=== PATIENT | female | born 1970 | race Caucasian/White ===

== ENCOUNTER 2016-04-12 14:13 | Emergency (ER) | payer OTHER, SELFPAY ==
[2016-04-12] MEDS ORDERED: Ondansetron ODT 4 MG TAB ONE (14:31)
[2016-04-12] MEDS ORDERED: Lidocaine 1% 20 ML MDV ONE (14:33)
[2016-04-12] MEDS ORDERED: cefTRIAXone\\ROCEPHIN 1 GM VIAL ONE (14:33)
--- NOTE | 2016-04-12 14:46 | PICIS ---
[facility] EMERGENCY RECORD TRIAGE (FriApr 12, 2016 14:19 BDON) TRIAGE NOTES: Right bottom toothache and swelling, has appointment at [facility] next week. (FriApr 12, 2016 14:19 BDON) PATIENT: NAME: Madelaine Larsen, AGE: 46, GENDER: female, : Fri1970, TIME OF GREET: FriApr 12, 2016 14:13, PREFERRED LANGUAGE: Tajik, ETHNICITY: Not or , ECODE BILLING MAP: [facility], SSN: [id number], Zip Code: [address], KG WEIGHT: [phone], PHONE: , , , PERSON ID: [id number], PCP: [facility] Yu, /Yanick. (FriApr 12, 2016 14:19 BDON) COMPLAINT: DENTAL PAIN. (FriApr 12, 2016 14:19 BDON) ADMISSION: URGENCY: 5 Fast Track, ADMISSION SOURCE: Home, TRANSPORT: Walk-in, BED: TRIAGE. (FriApr 12, 2016 14:19 BDON) ASSESSMENT: Assessment: Right bottom toothache and swelling, has appointment at [facility] Next week, Symptoms began 3 days ago. (14:21 BDON) TREATMENTS IN PROGRESS: Treatments given Prehospital: none. (14:21 BDON) PROVIDERS: TRIAGE NURSE: Nancy Magana RN. (FriApr 12, 2016 14:19 BDON) VITAL SIGNS: BP 142/68, Pulse 98, Resp 18, Temp 98.0, (Oral), Pain 5, O2 Sat 97, Time 04/12/2016 14:17. (14:17 BDON) PREVIOUS VISIT ALLERGIES: codeine sulfate. (FriApr 12, 2016 14:19 BDON) codeine sulfate. (14:21 BDON) KNOWN ALLERGIES codeine (Unconfirmed) codeine sulfate: Reaction: Nausea CURRENT MEDICATIONS (14:19 BDON) None VITAL SIGNS VITAL SIGNS: BP: 142/68, Pulse: 98, Resp: 18, Temp: 98.0 (Oral), Pain: 5, O2 sat: 97, Time: 04/12/2016 14:17. (14:17 BDON) Resp: 17, Pain: 2, Time: 04/12/2016 15:02. (15:02 BDON) NURSING ASSESSMENT: DENTAL (14:24 BDON) CONSTITUTIONAL: Patient arrives ambulatory, Gait steady, History obtained from patient, Patient appears, in distress due to pain, Patient cooperative, Patient alert, Oriented to person, place and time, Skin warm, Skin dry, Skin normal in color. PAIN: right lower tooth. DENTAL: Associated with, swelling to the right side of face. NURSING PROCEDURE: DISCHARGE NOTE (15:02 BDON) DISCHARGE: Patient discharged to home, ambulating without &a-1R&a+25V*p+0X*r3346N*c202B*c15G*c2P*p-0X&a-25V&a+1R Name: Madelaine Larsen : 1970 F46 MedRec: [id number] AcctNum: [id number] Prepared: FriApr 12, 2016 15:27 by Interface Page 1 of 6 pMD [facility] EMERGENCY RECORD assistance, friend driving, Summary of Care printed/ provided, Patient requested and was provided an electronic copy of Discharge Instructions, Transition record given to patient, Discharge instructions given to patient, Simple or moderate discharge teaching performed, Prescriptions given and instructions on side effects given, Medication reconciliation form given, Above person(s) verbalized understanding of discharge instructions and follow-up care, Patient instructed not to drive home, Patient treated and evaluated by physician. VITAL SIGNS: Resp: 17, Pain: 2. MEDICATION ADMINISTRATION SUMMARY Drug Name: Rocephin IM Convenience, Dose Ordered: 1 g, Route: Intramuscular, Status: Given, Time: 14:44 04/12/2016, Drug Name: morphine (PF) injection, Dose Ordered: 5 mg, Route: Intramuscular, Status: Given, Time: 14:43 04/12/2016, Drug Name: Zofran oral, Dose Ordered: 4 mg, Route: Oral, Status: Given, Time: 14:32 04/12/2016, Detailed record available in Medication Service section. MEDICATION SERVICE morphine (PF) injection: Order: morphine (PF) injection (morphine sulfate/preservative free) - Dose: 5 mg : Intramuscular POTENTIAL ALLERGY REACTION: 'codeine sulfate [codeine/codeine sulfate]' - Not a true drug allergy, Reviewed with patient Ordered by: Per Martinez MD Entered by: Per Martinez MD FriApr 12, 2016 14:27 Documented as given by: Nancy Magana RN FriApr 12, 2016 14:43 Patient, Medication, Dose, Route and Time verified prior to administration. IM medication, Amount given: 4 mg, Medication administered to left deltoid, Correct patient, time, route, dose and medication confirmed prior to administration, Patient advised of actions and side-effects prior to administration, Allergies confirmed and medications reviewed prior to administration. Rocephin IM Convenience: Order: Rocephin IM Convenience (ceftriaxone sodium/lidocaine HCl) - Dose: 1 g : Intramuscular Ordered by: Per Martinez MD Entered by: Per Martinez MD FriApr 12, 2016 14:27 Documented as given by: Nancy Magana RN FriApr 12, 2016 14:44 Patient, Medication, Dose, Route and Time verified prior to administration. IM antibiotic, Medication administered to right deltoid, Correct patient, time, route, dose and medication confirmed prior to administration, Patient advised of actions and side-effects prior to administration, Allergies confirmed and medications reviewed prior to administration, Patient in position of comfort, Cart in lowest &a-1R&a+25V*p+0X*n1831Q*c202B*c15G*c2P*p-0X&a-25V&a+1R Name: Madelaine Larsen : 1970 F46 MedRec: [id number] AcctNum: [id number] Prepared: FriApr 12, 2016 15:27 by Interface Page 2 of 6 pMD [facility] EM[facility] RECORD position. Zofran oral: Order: Zofran oral (ondansetron HCl) - Dose: 4 mg : Oral Ordered by: Per Martinez MD Entered by: Per Martinez MD FriApr 12, 2016 14:28 , Acknowledged by: Nadeen Arcos RN FriApr 12, 2016 14:31 Documented as given by: Nadeen Arcos RN FriApr 12, 2016 14:32 Patient, Medication, Dose, Route and Time verified prior to administration. Amount given: 4mg, Site: Medication administered S.L., Patient appears Awake and alert- acceptable, Correct patient, time, route, dose and medication confirmed prior to administration, Patient advised of actions and side-effects prior to administration, Allergies confirmed and medications reviewed prior to administration, Patient in position of comfort, Side rails up, Cart in lowest position, Family at bedside. HPI TOOTHACHE (14:31 AGRE) CHIEF COMPLAINT: Patient presents for evaluation of toothache, Patient presents for evaluation of jaw swelling. HISTORIAN: History provided by patient, SWELLING AND PAIN IN THE [facility] [place] SINCE YESTERDAY, WORST TODAY. NO FEVER OR CHILLS. NO OTHER SYMPTOMS. LOCATION: Symptoms are localized, most severe to RIGHT LOWER JAW. TEETH: lower right 2nd molar (#31),. QUALITY: Pain is dull in nature, described as aching, described as a sensation of fullness, described as pressure-like, described as throbbing. SEVERITY: Maximum severity of symptoms moderate, Currently symptoms are moderate. TIME COURSE: Gradual onset of symptoms, Symptoms are worsening. ASSOCIATED WITH: Associated with facial pain, Associated with facial swelling. EXACERBATED BY: Patient's condition exacerbated by nothing. RELIEVED BY: Patient's condition relieved by nothing. ROS (14:34 AGRE) CONSTITUTIONAL: Historian denies chills, denies fever, denies lethargy, denies malaise. EYES: Historian denies eye pain, denies eye redness. ENT: Historian denies rhinorrhea, denies sinus pain, denies sore throat. CARDIOVASCULAR: Historian denies chest pain, denies dyspnea on exertion. RESPIRATORY: Historian denies cough, denies shortness of breath. GI: Historian denies abdominal pain, denies nausea, denies vomiting. MUSCULOSKELETAL: Historian denies back pain, denies neck pain. SKIN: Negative skin review of systems, Historian denies skin &a-1R&a+25V*p+0X*m9424O*c202B*c15G*c2P*p-0X&a-25V&a+1R Name: Madelaine Larsen : 1970 F46 MedRec: [id number] AcctNum: [id number] Prepared: FriApr 12, 2016 15:27 by Interface Page 3 of 6 pMD [facility] EM[facility] RECORD changes, denies skin lesions. NEUROLOGIC: Historian denies headache, denies mental status changes. PSYCHIATRIC: Negative psychiatric review of systems, Historian denies anxiety. PAST MEDICAL HISTORY (14:21 BDON) MEDICAL HISTORY: Flu vaccine not up to date, Tetanus immunization up to date, Pneumococcal vaccine up to date, Past medical history includes cardiac history, myocardial infarction, arrhythmia, atrial fibrillation, Past medical history includes history of hypertension. FEMALE SURGICAL HISTORY: Surgical history of section x3. PSYCHIATRIC HISTORY: No previous psychiatric history. SOCIAL HISTORY: Patient drinks socially, twice a month, Patient denies drug use, Patient currently uses tobacco, smokes cigarettes, daily, Patient smokes 1 pack per day. FAMILY HISTORY: Family history includes coronary artery disease, father, AT 60 Y/O OR SO, Family history includes early coronary artery disease, sibling, IN 40S OF PRESUMED [place]. PHYSICAL EXAM (14:34 AGRE) CONSTITUTIONAL: Vital signs reviewed, Patient afebrile, Patient appears non toxic, Patient appears pain free, Patient alert and oriented to person, place and time, NURSES NOTES REVIEWED. HEAD: Head exam included findings of head atraumatic, normocephalic. EYES: Eye exam included findings of eyelids normal to inspection, Extraocular muscles intact, Conjunctiva normal, Sclera normal. ENT: Ear exam normal, Nose exam normal, Pharynx exam normal, Uvula exam normal, Tonsil exam normal, Mouth exam normal, Teeth with, poor dentition, dental caries, abscess, TENDER, SWELLING OVER THE RIGHT LOWER JAW WITHOUT ERYTHEMA OR POINTING ABSCESS. NECK: Neck exam included findings of normal range of motion, no meningeal signs. RESPIRATORY CHEST: Respiratory exam included findings of no respiratory distress, Chest exam included findings of chest movement symmetrical. BACK: Back exam included findings of normal inspection, range of motion normal. UPPER EXTREMITY: Upper extremity exam included findings of inspection normal, Range of motion normal. LOWER EXTREMITY: Lower extremity exam included findings of inspection normal, Range of motion normal. NEURO: Neuro exam findings include patient oriented to person, place and time, Speech normal, Gait normal, Memory normal, Cranial nerves intact, no focal motor deficits. SKIN: Skin exam included findings of skin warm, dry, and normal &a-1R&a+25V*p+0X*b8662P*c202B*c15G*c2P*p-0X&a-25V&a+1R Name: Chelsea Larsenyusuf Reyes : 1970 F46 MedRec: [id number] AcctNum: [id number] Prepared: FriApr 12, 2016 15:27 by Interface Page 4 of 6 pMD [facility] EMERGENCY RECORD in color. PSYCHIATRIC: Psychiatric exam normal, Normal affect. EVENTS TRANSFER: Triage to Emergency Triage. (14:19 BDON) Emergency Triage to Emergency Room -04. (14:19 BDON) Removed from Emergency Emergency Room -04. (15:13 BDON) DOCTOR NOTES (14:36 AGRE) TEXT: DISCUSSED WITH PATIENT FINDINGS ON EXAM, MANAGEMENT OF THE ABSCESS/INFECTION AND PAIN, NEED FOR FOLLOW UP. SHE EXPRESSED UNDERSTANDING AND AGREEMENT. PATIENT STATUS: Patient has improved since arrival to emergency department. PATIENT PLAN: The patient will be discharged. PROBLEM LIST No recorded problems DIAGNOSIS (14:29 AGRE) FINAL: PRIMARY: DENTAL ABSCESS. DISPOSITION PATIENT: Disposition Type: Discharge, Disposition: *Discharge Home, Condition: Improved. (14:29 AGRE) Patient left the department. (15:13 BDON) INSTRUCTION (14:30 AGRE) DISCHARGE: DENTAL ABSCESS. FOLLOWUP: [facility], [facility], [address] [place] [id number], . SPECIAL: FOLLOW UP WITH A DENTIST IN 5 - 7 DAYS. SEE A PHYSICIAN SOONER IF WORSENING OR IF NEW SYMPTOMS DEVELOP. IN ADDITION TO THE ULTRAM TAKE MOTRIN 600 MG EVERY 6 HOURS FOR INFLAMMATION AND PAIN. PRESCRIPTION (14:29 AGRE) Augmentin: TABLET : 875 mg-125 mg : ORAL : Quantity: 1 Unit: tab(s) Route: ORAL Schedule: every 12 hours Dispense: 20 Unit: tab(s) May substitute. Refills: No Refills . NOTES: No Refills. Ultram: TABLET : 50 mg : ORAL : Quantity: 1-2 Unit: tab(s) Route: ORAL Schedule: every 6 hours PRN Dispense: 20 May substitute. Refills: No Refills POTENTIAL ALLERGY REACTION: 'codeine sulfate [codeine/codeine sulfate]' Override Rationale: Not a true drug allergy, Reviewed with patient. NOTES: ^s=No Refills No Refills. &a-1R&a+25V*p+0X*b5201I*c202B*c15G*c2P*p-0X&a-25V&a+1R Name: Madelaine Larsen : 1970 6 MedRec: [id number] AcctNum: [id number] Prepared: FriApr 12, 2016 15:27 by Interface Page 5 of 6 pMD [facility] EMERGENCY RECORD IMAGING (15:12 BDON) *DISCHARGE INSTRUCTIONS RECEIPT: Image captured from scanner. *SUPPLY CHARGE SHEET: Image captured from scanner. ADMIN DIGITAL SIGNATURE: MD Martinez Andrea. (14:37 AGRE) YONATHAN Magana, Nancy. (15:13 BDON) Carbajal: AGRE=MD Martinez Andrea BDON=YONATHAN Magana Bettye &a-1R&a+25V*p+0X*l5742A*c202B*c15G*c2P*p-0X&a-25V&a+1R Name: Madelaine Larsen : 1970 F46 MedRec: [id number] AcctNum: [id number] Prepared: FriApr 12, 2016 15:27 by Interface Page 6 of 6 pMD MTDD
--- NOTE | 2016-04-12 14:49 | ERRECORD ---
[facility] EMERGENCY RECORD HPI TOOTHACHE (14:31 AGRE) CHIEF COMPLAINT: Patient presents for evaluation of toothache, Patient presents for evaluation of jaw swelling. HISTORIAN: History provided by patient, SWELLING AND PAIN IN THE [facility] [place] SINCE YESTERDAY, WORST TODAY. NO FEVER OR CHILLS. NO OTHER SYMPTOMS. LOCATION: Symptoms are localized, most severe to RIGHT LOWER JAW. TEETH: lower right 2nd molar (#31),. QUALITY: Pain is dull in nature, described as aching, described as a sensation of fullness, described as pressure-like, described as throbbing. SEVERITY: Maximum severity of symptoms moderate, Currently symptoms are moderate. TIME COURSE: Gradual onset of symptoms, Symptoms are worsening. ASSOCIATED WITH: Associated with facial pain, Associated with facial swelling. EXACERBATED BY: Patient's condition exacerbated by nothing. RELIEVED BY: Patient's condition relieved by nothing. ROS (14:34 AGRE) CONSTITUTIONAL: Historian denies chills, denies fever, denies lethargy, denies malaise. EYES: Historian denies eye pain, denies eye redness. ENT: Historian denies rhinorrhea, denies sinus pain, denies sore throat. CARDIOVASCULAR: Historian denies chest pain, denies dyspnea on exertion. RESPIRATORY: Historian denies cough, denies shortness of breath. GI: Historian denies abdominal pain, denies nausea, denies vomiting. MUSCULOSKELETAL: Historian denies back pain, denies neck pain. SKIN: Negative skin review of systems, Historian denies skin changes, denies skin lesions. NEUROLOGIC: Historian denies headache, denies mental status changes. PSYCHIATRIC: Negative psychiatric review of systems, Historian denies anxiety. PAST MEDICAL HISTORY (14:21 BDON) MEDICAL HISTORY: Flu vaccine not up to date, Tetanus immunization up to date, Pneumococcal vaccine up to date, Past medical history includes cardiac history, myocardial infarction, arrhythmia, atrial fibrillation, Past medical history includes history of hypertension. FEMALE SURGICAL HISTORY: Surgical history of section x3. PSYCHIATRIC HISTORY: No previous psychiatric history. SOCIAL HISTORY: Patient drinks socially, twice a month, Patient denies drug use, Patient currently uses tobacco, smokes &a-1R&a+25V*p+0X*v2842W*c202B*c15G*c2P*p-0X&a-25V&a+1R Name: Madelaine Larsen : 1970 F46 MedRec: [id number] AcctNum: [id number] Prepared: FriApr 12, 2016 15:21 by Interface Page 1 of 3 pMD [facility] EMERGENCY RECORD cigarettes, daily, Patient smokes 1 pack per day. FAMILY HISTORY: Family history includes coronary artery disease, father, AT 60 Y/O OR SO, Family history includes early coronary artery disease, sibling, IN 40S OF PRESUMED [place]. KNOWN ALLERGIES codeine (Unconfirmed) codeine sulfate: Reaction: Nausea CURRENT MEDICATIONS (14:19 BDON) None VITAL SIGNS VITAL SIGNS: BP: 142/68, Pulse: 98, Resp: 18, Temp: 98.0 (Oral), Pain: 5, O2 sat: 97, Time: 04/12/2016 14:17. (14:17 BDON) Resp: 17, Pain: 2, Time: 04/12/2016 15:02. (15:02 BDON) PHYSICAL EXAM (14:34 AGRE) CONSTITUTIONAL: Vital signs reviewed, Patient afebrile, Patient appears non toxic, Patient appears pain free, Patient alert and oriented to person, place and time, NURSES NOTES REVIEWED. HEAD: Head exam included findings of head atraumatic, normocephalic. EYES: Eye exam included findings of eyelids normal to inspection, Extraocular muscles intact, Conjunctiva normal, Sclera normal. ENT: Ear exam normal, Nose exam normal, Pharynx exam normal, Uvula exam normal, Tonsil exam normal, Mouth exam normal, Teeth with, poor dentition, dental caries, abscess, TENDER, SWELLING OVER THE RIGHT LOWER JAW WITHOUT ERYTHEMA OR POINTING ABSCESS. NECK: Neck exam included findings of normal range of motion, no meningeal signs. RESPIRATORY CHEST: Respiratory exam included findings of no respiratory distress, Chest exam included findings of chest movement symmetrical. BACK: Back exam included findings of normal inspection, range of motion normal. UPPER EXTREMITY: Upper extremity exam included findings of inspection normal, Range of motion normal. LOWER EXTREMITY: Lower extremity exam included findings of inspection normal, Range of motion normal. NEURO: Neuro exam findings include patient oriented to person, place and time, Speech normal, Gait normal, Memory normal, Cranial nerves intact, no focal motor deficits. SKIN: Skin exam included findings of skin warm, dry, and normal in color. PSYCHIATRIC: Psychiatric exam normal, Normal affect. MEDICATION ADMINISTRATION SUMMARY &a-1R&a+25V*p+0X*b3229R*c202B*c15G*c2P*p-0X&a-25V&a+1R Name: Madelaine Larsen : 1970 F46 MedRec: [id number] AcctNum: [id number] Prepared: FriApr 12, 2016 15:21 by Interface Page 2 of 3 pMD [facility] EMERGENCY RECORD Drug Name: Rocephin IM Convenience, Dose Ordered: 1 g, Route: Intramuscular, Status: Given, Time: 14:44 04/12/2016, Drug Name: morphine (PF) injection, Dose Ordered: 5 mg, Route: Intramuscular, Status: Given, Time: 14:43 04/12/2016, Drug Name: Zofran oral, Dose Ordered: 4 mg, Route: Oral, Status: Given, Time: 14:32 04/12/2016, Detailed record available in Medication Service section. DOCTOR NOTES (14:36 AGRE) TEXT: DISCUSSED WITH PATIENT FINDINGS ON EXAM, MANAGEMENT OF THE ABSCESS/INFECTION AND PAIN, NEED FOR FOLLOW UP. SHE EXPRESSED UNDERSTANDING AND AGREEMENT. PATIENT STATUS: Patient has improved since arrival to emergency department. PATIENT PLAN: The patient will be discharged. PROBLEM LIST No recorded problems DIAGNOSIS (14:29 AGRE) FINAL: PRIMARY: DENTAL ABSCESS. PRESCRIPTION (14:29 AGRE) Augmentin: TABLET : 875 mg-125 mg : ORAL : Quantity: 1 Unit: tab(s) Route: ORAL Schedule: every 12 hours Dispense: 20 Unit: tab(s) May substitute. Refills: No Refills . NOTES: No Refills. Ultram: TABLET : 50 mg : ORAL : Quantity: 1-2 Unit: tab(s) Route: ORAL Schedule: every 6 hours PRN Dispense: 20 May substitute. Refills: No Refills POTENTIAL ALLERGY REACTION: 'codeine sulfate [codeine/codeine sulfate]' Override Rationale: Not a true drug allergy, Reviewed with patient. NOTES: ^s=No Refills No Refills. DISPOSITION PATIENT: Disposition Type: Discharge, Disposition: *Discharge Home, Condition: Improved. (14:29 TREVER) Patient left the department. (15:13 RAMU) Carbajal: TREVER=MD Jaun, Per BDON=YONATHAN Magana, [facility] &a-1R&a+25V*p+0X*g9880Z*c202B*c15G*c2P*p-0X&a-25V&a+1R Name: Madelaine Larsen : 1970 F46 MedRec: [id number] AcctNum: [id number] Prepared: FriApr 12, 2016 15:21 by Interface Page 3 of 3 pMD MTDD
== END 2016-04-12 15:02 | disposition home or self-care (01) ==
LOC: NAV ERS 14:13
DX: K04.7 Periapical abscess without sinus (principal); I25.2 Old myocardial infarction; I48.91 Unspecified atrial fibrillation; I10 Essential (primary) hypertension; F17.210 Nicotine dependence, cigarettes, uncomplicated
CPT/HCPCS: 96372; J0696; J2001; J2270; Q0162

== ENCOUNTER 2016-04-13 16:21 | Emergency (ER) | payer SELFPAY ==
[2016-04-13] MEDS ORDERED: Benzocaine 20% Spray 60 ML CAN ONE (16:55)
[2016-04-13] MEDS ORDERED: Ondansetron ODT 4 MG TAB ONE (16:58)
--- NOTE | 2016-04-13 17:57 | ERRECORD ---
[facility] EMERGENCY RECORD HPI TOOTHACHE (16:53 SROB) CHIEF COMPLAINT: Patient presents for evaluation of toothache, Patient presents for evaluation of jaw swelling. HISTORIAN: History provided by patient, This patient was seen yesterday with tooth abscess, placed on Augmentin and ultram but noted increased swelling and "pus pocket" on gum today. LOCATION: Symptoms are localized, most severe to right lower gum near 2nd molar. QUALITY: Pain is dull in nature, described as throbbing. SEVERITY: Maximum severity of symptoms moderate, Currently symptoms are moderate. TIME COURSE: Gradual onset of symptoms, 3. ASSOCIATED WITH: Associated with facial pain, for 2 days, Associated with facial swelling, for 2 days. EXACERBATED BY: Patient's condition exacerbated by chewing. RELIEVED BY: Patient's condition relieved by nothing. ROS (16:55 SROB) CONSTITUTIONAL: Historian denies chills, denies fever. ENT: Complains of right lower mouth and jaw pain and swelling, Historian denies epistaxis, Historian denies otalgia, Historian denies rhinorrhea, Historian denies sore throat. CARDIOVASCULAR: Historian denies chest pain. RESPIRATORY: Historian denies cough, denies shortness of breath. GI: Historian denies nausea, denies vomiting. MUSCULOSKELETAL: Historian denies neck pain. SKIN: Historian denies rash. NEUROLOGIC: Historian denies headache. PAST MEDICAL HISTORY (16:38 EPIE) MEDICAL HISTORY: Flu vaccine not up to date, Tetanus immunization up to date, Pneumococcal vaccine up to date, Past medical history includes cardiac history, myocardial infarction, arrhythmia, atrial fibrillation, Past medical history includes history of hypertension. FEMALE SURGICAL HISTORY: Surgical history of section x3. PSYCHIATRIC HISTORY: No previous psychiatric history. SOCIAL HISTORY: Patient drinks socially, twice a month, Patient denies drug use, Patient currently uses tobacco, smokes cigarettes, daily, Patient smokes 1 pack per day. FAMILY HISTORY: Family history includes coronary artery disease, father, AT 60 Y/O OR SO, Family history includes early coronary artery disease, sibling, IN 40S OF PRESUMED [place]. KNOWN ALLERGIES codeine sulfate: Reaction: Nausea &a-1R&a+25V*p+0X*[id number]*c202B*c15G*c2P*p-0X&a-25V&a+1R Name: Madelaine Larsen : 1970 F46 MedRec: [id number] AcctNum: [id number] Prepared: Sat Apr 13, 2016 17:48 by Interface Page 1 of 3 pMD [facility] EMERGENCY RECORD CURRENT MEDICATIONS (16:37 EPIE) Augmentin: TABLET : Strength - 875 mg-125 mg : ORAL Patient Dose: 1 tab(s) Oral every 12 hours. Ultram: TABLET : Strength - 50 mg : ORAL Patient Dose: 1-2 tab(s) Oral every 6 hours PRN. VITAL SIGNS VITAL SIGNS: BP: 137/68, Pulse: 86, Resp: 20 (Non-Labored), Temp: 98.4 (Oral), Pain: 6, O2 sat: 100 on Room Air, Time: 04/13/2016 16:34. (16:34 EPIE) BP: 132/72, Pulse: 80, Resp: 18, Temp: 98.0 (Oral), Pain: 4, O2 sat: 99 on Room Air, Time: 04/13/2016 17:40. (17:40 EPIE) PHYSICAL EXAM (16:56 SROB) CONSTITUTIONAL: Vital signs reviewed, Patient alert and oriented to person, place and time. HEAD: Head exam included findings of head atraumatic, normocephalic. EYES: Pupils equally round and reactive to light, Extraocular muscles intact, Conjunctiva normal. ENT: Ear exam normal, external ear normal, no drainage, no bleeding, Nose exam normal, no bleeding from nares, Pharynx exam normal, Uvula exam normal, Tonsil exam normal, Mouth exam included findings of, There is swelling at thegum of thelower right jaw at the level of the 2nd molar, which is decayed and missing 50% of tooth. There is a pointing area of pus at the gum level. NECK: Neck exam included findings of normal range of motion, Trachea midline, no jugular venous distention. RESPIRATORY CHEST: Respiratory exam included findings of no respiratory distress, Breath sounds clear, No wheezing, No rales, No rhonchi. CARDIOVASCULAR: Cardiovascular exam included findings of heart rate regular rate and rhythm, Heart sounds normal, normal S1, normal S2, no murmurs. SKIN: Skin exam included findings of skin warm, dry. MEDICATION ADMINISTRATION SUMMARY Drug Name: *Hurricaine, Dose Ordered: 3 spray(s), Route: Topical, Status: Given, Time: 17:02 04/13/2016, *Additional information available in notes, Detailed record available in Medication Service section. PROBLEM LIST No recorded problems DIAGNOSIS (17:32 SROB) FINAL: PRIMARY: PERIAPICAL ABSCESS WITHOUT SINUS. &a-1R&a+25V*p+0X*b5539H*c202B*c15G*c2P*p-0X&a-25V&a+1R Name: Madelaine Larsen : 1970 6 MedRec: [id number] AcctNum: [id number] Prepared: Sat Apr 13, 2016 17:48 by Interface Page 2 of 3 pMD [facility] EMERGENCY RECORD PRESCRIPTION (17:33 SROB) [place]: TABLET : 5 mg-325 mg : ORAL : Quantity: 1-2 Unit: tab(s) Route: ORAL Schedule: every 6 hours PRN Dispense: 20 Unit: tab(s) May substitute. Refills: No Refills POTENTIAL ALLERGY REACTION: 'codeine sulfate [codeine/codeine sulfate]'. NOTES: No Refills. Zofran ODT: TABLET,DISINTEGRATING : 4 mg : ORAL : Quantity: 1 Unit: tab(s) Route: ORAL Schedule: every 8 hours PRN Dispense: 20 Unit: tab(s) May substitute. Refills: No Refills . NOTES: prn nausea No Refills. DISPOSITION PATIENT: Disposition Type: Discharge, Disposition: *Discharge Home, Disposition Transport: Ambulatory, Condition: Good. (17:32 SROB) Patient left the department. (17:43 EPIE) Carbajal: EPIE=YONATHAN Le, Vilma SROB=MD Yovany, [facility] &a-1R&a+25V*p+0X*[id number]*c202B*c15G*c2P*p-0X&a-25V&a+1R Name: Madelaine Larsen : 1970 F46 MedRec: [id number] AcctNum: [id number] Prepared: Sat Apr 13, 2016 17:48 by Interface Page 3 of 3 pMD MTDD
--- NOTE | 2016-04-13 18:08 | PICIS ---
[facility] EMERGENCY RECORD TRIAGE (16:37 EPIE) TRIAGE NOTES: Pt states that she has a dental abscess. Pt was seen here yesterday and got a prescription and pain medication. (16:37 EPIE) PATIENT: NAME: Madelaine Larsen, AGE: 46, GENDER: female, : Fri1970, TIME OF GREET: Sat Apr 13, 2016 16:22, PREFERRED LANGUAGE: [place], ETHNICITY: Not or , ECODE BILLING MAP: [facility], SSN: [id number], Zip Code: [address], KG WEIGHT: [phone], PHONE: , , , PERSON ID: [id number], PCP: Adriana Nicholas /Yanick. (16:37 EPIE) COMPLAINT: DENTAL PAIN. (16:37 EPIE) ADMISSION: URGENCY: 4 Non Urgent, ADMISSION SOURCE: Home, TRANSPORT: CAR, BED: TRIAGE. (16:37 EPIE) TRIAGE SCREENING: Patient denies suicidal ideation, Patient denies presence of domestic violence. (16:38 EPIE) TREATMENTS IN PROGRESS: Treatments given Prehospital: augmentin earlier. (16:38 EPIE) PROVIDERS: TRIAGE NURSE: Vilma Le RN. (16:37 EPIE) VITAL SIGNS: BP 137/68, Pulse 86, Resp 20, (Non-Labored), Temp 98.4, (Oral), Pain 6, O2 Sat 100, on Room Air, Time 04/13/2016 16:34. (16:34 EPIE) PREVIOUS VISIT ALLERGIES: codeine sulfate. (16:37 EPIE) codeine sulfate. (16:38 EPIE) KNOWN ALLERGIES codeine sulfate: Reaction: Nausea CURRENT MEDICATIONS (16:37 EPIE) Augmentin: TABLET : Strength - 875 mg-125 mg : ORAL Patient Dose: 1 tab(s) Oral every 12 hours. Ultram: TABLET : Strength - 50 mg : ORAL Patient Dose: 1-2 tab(s) Oral every 6 hours PRN. VITAL SIGNS VITAL SIGNS: BP: 137/68, Pulse: 86, Resp: 20 (Non-Labored), Temp: 98.4 (Oral), Pain: 6, O2 sat: 100 on Room Air, Time: 04/13/2016 16:34. (16:34 EPIE) BP: 132/72, Pulse: 80, Resp: 18, Temp: 98.0 (Oral), Pain: 4, O2 sat: 99 on Room Air, Time: 04/13/2016 17:40. (17:40 EPIE) NURSING ASSESSMENT: DENTAL (17:03 EPIE) CONSTITUTIONAL: Patient arrives ambulatory, Gait steady, History obtained from patient, Patient appears comfortable, Patient cooperative, Patient alert, Oriented to person, place and time, Skin warm, Skin dry, Skin normal in color, Mucous membranes pink, Mucous membranes moist, Patient is well-groomed. PAIN: shooting pain, right ear, Onset of pain &a-1R&a+25V*p+0X*c6746Z*c202B*c15G*c2P*p-0X&a-25V&a+1R Name: Madelaine Larsen : 1970 F46 MedRec: [id number] AcctNum: [id number] Prepared: Sat Apr 13, 2016 17:55 by Interface Page 1 of 5 pMD [facility] EMERGENCY RECORD 04/12/2016, on a scale 0-10 patient rates pain as 6. DENTAL: Dental assessment findings include mouth normal, Teeth abnormal:, broken secondary tooth (teeth), gums swollen, gums tender, abscess to right cheek pocket. NURSING PROCEDURE: DISCHARGE NOTE (17:41 EPIE) DISCHARGE: Patient discharged to home, ambulating without assistance, family driving, accompanied by //partner, Summary of Care printed/ provided, Discharge instructions given to patient, Simple or moderate discharge teaching performed, Prescriptions given and instructions on side effects given, Name of prescription(s) given: NORCO, ZOFRAN. BELONGINGS: Belongings and valuables with patient upon arrival to the Emergency Department include:, Belongings and valuables with patient at time of discharge include:, Belongings remain with patient, Valuables remain with patient. NURSING PROCEDURE: NURSE NOTES (17:32 EPIE) NURSES NOTES: Notes: ERMD performed I&D in right cheek pocket. States small amount of blood came out. No purulent drainage. Pt tolerated well. ORDER DETAILS Order Name: Miscellaneous Nurse Order(s), Status: Done, Time: 17:04 04/13/2016, User: EPIE, - Ordered for: MD Yovany, Zafar, - Entered by: MD Yovany, Zafar - Sat Apr 13, 2016 16:53, - Quantity: 1. MEDICATION ADMINISTRATION SUMMARY Drug Name: *Hurricaine, Dose Ordered: 3 spray(s), Route: Topical, Status: Given, Time: 17:02 04/13/2016, *Additional information available in notes, Detailed record available in Medication Service section. MEDICATION SERVICE (17:02 SROB) Hurricaine: Order: Hurricaine (benzocaine) - Dose: 3 spray(s) : Topical Schedule: Now Notes: spray on 2 by 2 and hold it on the area. Ordered by: Zafar Pedroza MD Entered by: Zafar Pedroza MD Sat Apr 13, 2016 16:52 , Acknowledged by: Vilma Le RN Sat Apr 13, 2016 16:54 Documented as given by: Vilma Le RN Sat Apr 13, 2016 17:02 Patient, Medication, Dose, Route and Time verified prior to administration. &a-1R&a+25V*p+0X*h8764Q*c202B*c15G*c2P*p-0X&a-25V&a+1R Name: Madelaine Larsen : 1970 F46 MedRec: [id number] AcctNum: [id number] Prepared: Sat Apr 13, 2016 17:55 by Interface Page 2 of 5 pMD [facility] EMERGENCY RECORD Amount given: 3sprays, Skin cleansed prior to administration, Shaving required prior to administration, Correct patient, time, route, dose and medication confirmed prior to administration, Patient advised of actions and side-effects prior to administration, Allergies confirmed and medications reviewed prior to administration. HPI TOOTHACHE (16:53 SROB) CHIEF COMPLAINT: Patient presents for evaluation of toothache, Patient presents for evaluation of jaw swelling. HISTORIAN: History provided by patient, This patient was seen yesterday with tooth abscess, placed on Augmentin and ultram but noted increased swelling and "pus pocket" on gum today. LOCATION: Symptoms are localized, most severe to right lower gum near 2nd molar. QUALITY: Pain is dull in nature, described as throbbing. SEVERITY: Maximum severity of symptoms moderate, Currently symptoms are moderate. TIME COURSE: Gradual onset of symptoms, 3. ASSOCIATED WITH: Associated with facial pain, for 2 days, Associated with facial swelling, for 2 days. EXACERBATED BY: Patient's condition exacerbated by chewing. RELIEVED BY: Patient's condition relieved by nothing. ROS (16:55 SROB) CONSTITUTIONAL: Historian denies chills, denies fever. ENT: Complains of right lower mouth and jaw pain and swelling, Historian denies epistaxis, Historian denies otalgia, Historian denies rhinorrhea, Historian denies sore throat. CARDIOVASCULAR: Historian denies chest pain. RESPIRATORY: Historian denies cough, denies shortness of breath. GI: Historian denies nausea, denies vomiting. MUSCULOSKELETAL: Historian denies neck pain. SKIN: Historian denies rash. NEUROLOGIC: Historian denies headache. PAST MEDICAL HISTORY (16:38 EPIE) MEDICAL HISTORY: Flu vaccine not up to date, Tetanus immunization up to date, Pneumococcal vaccine up to date, Past medical history includes cardiac history, myocardial infarction, arrhythmia, atrial fibrillation, Past medical history includes history of hypertension. FEMALE SURGICAL HISTORY: Surgical history of section x3. PSYCHIATRIC HISTORY: No previous psychiatric history. SOCIAL HISTORY: Patient drinks socially, twice a month, Patient denies drug use, Patient currently uses tobacco, smokes cigarettes, daily, Patient smokes 1 pack per day. FAMILY HISTORY: Family history includes coronary artery &a-1R&a+25V*p+0X*c9809A*c202B*c15G*c2P*p-0X&a-25V&a+1R Name: Madelaine Larsen : 1970 F46 MedRec: [id number] AcctNum: [id number] Prepared: Sat Apr 13, 2016 17:55 by Interface Page 3 of 5 pMD [facility] EMERGENCY RECORD disease, father, AT 60 Y/O OR SO, Family history includes early coronary artery disease, sibling, IN 40S OF PRESUMED MO. PHYSICAL EXAM (16:56 SROB) CONSTITUTIONAL: Vital signs reviewed, Patient alert and oriented to person, place and time. HEAD: Head exam included findings of head atraumatic, normocephalic. EYES: Pupils equally round and reactive to light, Extraocular muscles intact, Conjunctiva normal. ENT: Ear exam normal, external ear normal, no drainage, no bleeding, Nose exam normal, no bleeding from nares, Pharynx exam normal, Uvula exam normal, Tonsil exam normal, Mouth exam included findings of, There is swelling at thegum of thelower right jaw at the level of the 2nd molar, which is decayed and missing 50% of tooth. There is a pointing area of pus at the gum level. NECK: Neck exam included findings of normal range of motion, Trachea midline, no jugular venous distention. RESPIRATORY CHEST: Respiratory exam included findings of no respiratory distress, Breath sounds clear, No wheezing, No rales, No rhonchi. CARDIOVASCULAR: Cardiovascular exam included findings of heart rate regular rate and rhythm, Heart sounds normal, normal S1, normal S2, no murmurs. SKIN: Skin exam included findings of skin warm, dry. EVENTS TRANSFER: Triage to Emergency Triage. (Sat Apr 13, 2016 16:37 EPIE) Emergency Triage to Emergency Room -05. (16:37 EPIE) Removed from Emergency Emergency Room -05. (17:43 EPIE) INCISION AND DRAINAGE (17:30 SROB) TIMEOUT: Side and/or site verified, Patient identification confirmed. INCISION AND DRAINAGE: Side and/or site verified, Patient identification confirmed, Sterile procedures observed, Verbal consent obtained, Incision and drainage indicated for cutaneous abscess, Topical anesthesia used, Incision and drainage, Incision was made over area of fluctuance, Drained blood, There were no complications, Tetanus status up to date, There was an intra orl suspected abscess pointing on the right lower gum. It was I and d but no pus drained, only a smll amount of blood. PROBLEM LIST No recorded problems DIAGNOSIS (17:32 SROB) FINAL: PRIMARY: PERIAPICAL ABSCESS WITHOUT SINUS. &a-1R&a+25V*p+0X*k6816W*c202B*c15G*c2P*p-0X&a-25V&a+1R Name: Madelaine Larsen : 1970 F46 MedRec: [id number] AcctNum: [id number] Prepared: [facility] Apr 13, 2016 17:55 by Interface Page [facility] PATIENT: Disposition Type: Discharge, Disposition: *Discharge Home, Disposition Transport: Ambulatory, Condition: Good. (17:32 SROB) Patient left the department. (17:43 EPIE) INSTRUCTION (17:34 SROB) DISCHARGE: ABSCESS DENTAL. FOLLOWUP: [facility], [facility], [address], [facility] [address], . SPECIAL: See Dentist this week. PRESCRIPTION (17:33 SROB) [place]: TABLET : 5 mg-325 mg : ORAL : Quantity: 1-2 Unit: tab(s) Route: ORAL Schedule: every 6 hours PRN Dispense: 20 Unit: tab(s) May substitute. Refills: No Refills POTENTIAL ALLERGY REACTION: 'codeine sulfate [codeine/codeine sulfate]'. NOTES: No Refills. Zofran ODT: TABLET,DISINTEGRATING : 4 mg : ORAL : Quantity: 1 Unit: tab(s) Route: ORAL Schedule: every 8 hours PRN Dispense: 20 Unit: tab(s) May substitute. Refills: No Refills . NOTES: prn nausea No Refills. IMAGING RX: Image captured from scanner. (17:36 EPIE) *DISCHARGE INSTRUCTIONS RECEIPT: Image captured from scanner. (17:42 EPIE) *SUPPLY CHARGE SHEET: Image captured from scanner. (17:42 EPIE) ADMIN (17:36 SROB) DIGITAL SIGNATURE: MD Yovany, Zafar. Carbajal: EPIE=YONATHAN Le, Vilma SROB=MD Yovany, Zafar &a-1R&a+25V*p+0X*f4931A*c202B*c15G*c2P*p-0X&a-25V&a+1R Name: Madelaine Larsen : 1970 F46 MedRec: [id number] AcctNum: [id number] Prepared: [place] Apr 13, 2016 17:55 by Interface Page 5 of 5 pMD MTDD
== END 2016-04-13 17:41 | disposition home or self-care (01) ==
LOC: NAV ERS 16:21
DX: K04.7 Periapical abscess without sinus (principal); I10 Essential (primary) hypertension; F17.210 Nicotine dependence, cigarettes, uncomplicated; I48.91 Unspecified atrial fibrillation
CPT/HCPCS: 41800; Q0162

== ENCOUNTER 2016-08-21 14:19 | Emergency (ER) | payer SELFPAY ==
[2016-08-21] MEDS ORDERED: Ketorolac Tromethamine 60 MG/2 ML VIAL ONE (14:53)
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
== END 2016-08-21 15:55 | disposition home or self-care (01) ==
LOC: NAV ERS 14:19
DX: S16.1XXA Strain of muscle, fascia and tendon at neck level, initial encounter (principal); S40.011A Contusion of right shoulder, initial encounter; I10 Essential (primary) hypertension; I25.2 Old myocardial infarction; F32.9 Major depressive disorder, single episode, unspecified; F17.210 Nicotine dependence, cigarettes, uncomplicated; V89.2XXA Person injured in unspecified motor-vehicle accident, traffic, initial encounter
CPT/HCPCS: 72125; 96372; J1885